=== PATIENT | male | born 1995 | race Hispanic/Latino ===

== ENCOUNTER 2018-04-21 21:17 | Emergency (ER) | payer BC ==
[2018-04-21] MEDS ORDERED: Silver Sulfadiazine 1% CREAM (50 gm) TOP STA (22:22)
[2018-04-21] MEDS ORDERED: Naproxen 500 MG TAB PO STA (22:22)
[2018-04-21] MEDS ORDERED: Silver Sulfadiazine 1% CREAM (50 gm) ONE (22:42)
[2018-04-21] MEDS ORDERED: Naproxen 500 MG TAB PO ONE (22:42)
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
[2018-04-21 23:10] VITALS: BP 127/73; PULSE 87; RESP 17; TEMP 98.1; O2SAT 100
== END 2018-04-21 23:09 | disposition home or self-care (01) ==
LOC: H.ER 21:17
DX: T23.202A Burn of second degree of left hand, unspecified site, initial encounter (principal)